=== PATIENT | female | born 1940 | race Caucasian/White ===

== ENCOUNTER 2019-12-08 08:54 | Outpatient (CLI) | payer MEDICARE, BC, SELFPAY ==
[2019-12-08 09:27] LABS: Hematocrit 44.4 % (37.0-47.0); Hemoglobin 15.3 g/dL (12.0-15.0); Mean Corpuscular HGB Conc 34.5 g/dl (32-36); Mean Corpuscular Hemoglobin 34.1 pg (26-34); Mean Corpuscular Volume 98.9 fl (80-100); Mean Platelet Volume 9.3 fl (7.4-10.4); Platelet Count Result 204 k/mm3 (150-375); Red Blood Count 4.49 M/mm3 (4.2-5.4); Red Cell Distribution Width 13.8 % (11.5-14.5); White Blood Count 5.2 K/mm3 (4.5-10.0)
[2019-12-08 09:36] LABS: Alanine Aminotransferase 53 U/L (4-35); Alkaline Phosphatase 121 U/L (38-126); Aspartate Amino Transferase 67 U/L (14-36); Bilirubin,Total 1.2 mg/dL (0.2-1.3); Blood Urea Nitrogen 13 mg/dL (7-17); Calcium 9.1 mg/dL (8.4-10.2); Carbon Dioxide 26 mmol/L (22-30); Chloride 104 mmol/L (98-107); Estimated Glomerular Filt Rate > 60; Glucose 100 mg/dL (65-105); Potassium 4.3 mmol/L (3.4-5.0); Sodium 135 mmol/L (137-145)
[2019-12-08 10:47] LABS: Folic Acid > 20.0 ng/mL (2.76->20)
== END 2019-12-08 08:55 | disposition home or self-care (01) ==
LOC: ANHLAB 08:57
PROVIDERS: PCP Internal Medicine; Visit Provider Internal Medicine
DX: R53.83 Other fatigue (principal)
CPT/HCPCS: 36415; 80053; 82607; 82746; 84443; 85027

== ENCOUNTER 2019-12-26 00:57 | Emergency (ER) | payer MEDICARE, BC, SELFPAY ==
[2019-12-26 00:49] VITALS: BP 143/79; PULSE 63; RESP 19; TEMP 36.4; O2SAT 97
[2019-12-26 01:12] LABS: Basophils Absolute Auto 0.1 K/mm3 (0.0-0.1); Basophils Percent Auto 1.5 % (0.2-1.2); Eosinophils Absolute Auto 0.3 K/mm3 (0-0.3); Eosinophils Percent Auto 6.1 % (0-4.4); Hematocrit 42.8 % (37.0-47.0); Hemoglobin 14.9 g/dL (12.0-15.0); Immature Granulocyte Absolute 0.01 K/mm3 (0.00-0.031); Immature Granulocyte Percent A 0.2 % (0-0.5); Lymphocytes Absolute Auto 1.65 K/mm3 (0.9-3.2); Lymphocytes Percent Auto 34.9 % (18.3-44.2); Mean Corpuscular HGB Conc 34.8 g/dl (32-36); Mean Corpuscular Hemoglobin 34.3 pg (26-34); Mean Corpuscular Volume 98.6 fl (80-100); Monocytes Absolute Auto 0.6 K/mm3 (0.1-0.6); Monocytes Percent Auto 12.1 % (2.6-8.5); Neutrophils Absolute Auto 2.1 K/mm3 (1.3-6.7); Neutrophils Percent Auto 45.2 % (45.5-73.1); Platelet Count Result 216 k/mm3 (150-375); Red Blood Count 4.34 M/mm3 (4.2-5.4); Red Cell Distribution Width 13.5 % (11.5-14.5); White Blood Count 4.7 K/mm3 (4.5-10.0)
[2019-12-26] MEDS: OXYMETAZOLINE HCL 0.05% NAS 15 ML BTL (*BKC) 1 SPRAY NASAL (01:18)
[2019-12-26 01:27] LABS: Alanine Aminotransferase 41 U/L (4-35); Albumin Level 3.8 g/dL (3.5-5.1); Alkaline Phosphatase 116 U/L (38-126); Anion Gap 8 mmol/L (8-16); Aspartate Amino Transferase 55 U/L (14-36); Bilirubin,Total 0.6 mg/dL (0.2-1.3); Blood Urea Nitrogen 15 mg/dL (7-17); Carbon Dioxide 22 mmol/L (22-30); Chloride 103 mmol/L (98-107); Estimated CRCL calculation 71 ml/min; Estimated Glomerular Filt Rate > 60; Glucose 131 mg/dL (65-105); Sodium 133 mmol/L (137-145)
[2019-12-26 01:29] LABS: INR 2.3; Prothrombin Time 24.9 Seconds (11.1-14.7)
--- NOTE | 2019-12-26 01:32 | ED.EPISTAXIS ---
HPI - Epistaxis General Chief complaint: Epistaxis Stated complaint: nose bleed Source: patient and EMS History of Present Illness HPI Narrative: Patient presents via EMS for nosebleed in the night. She had a nosebleed yesterday that resolved. Then in the night she woke up with blood on her hand. She said is bleeding from the left nostril. She is on Xarelto for her A. fib. She has had nosebleeds in the past. She also takes blood pressure medicine. She lives alone. She denies picking her nose. She has not been sick recently. complaint: epistaxis Location: left nostril Onset (ago): hour(s) Duration: now resolved Context: history of previous, other anticoagulant use, hypertension and other (History of A. fib) Treatment prior to arrival: nose pinching and nasal clamp Related Data Home Medications Medication Instructions Recorded Confirmed artificial tears(hypromellose) 0.3 1 drop EACH EYE BID PRN 06/18/19 % eye drops calcium phosphate-vitamin D3 250 tablet PO 06/18/19 mg calcium-500 unit chewable tablet melatonin 3 mg capsule PO 06/18/19 metoprolol tartrate 25 mg tablet 12.5 mg PO BID tablet 06/18/19 rivaroxaban 20 mg tablet 20 mg PO QPM 06/18/19 Allergies Allergy/AdvReac Type Severity Reaction Status Date / Time Penicillins Allergy Unknown Hives Verified 06/21/19 10:48 Review of Systems Review of Systems: Narrative: CONSTITUTIONAL: Denies fever, chills, or sweats. EYES: Denies visual changes, redness, or discharge. ENT: Denies rhinorrhea, congestion, sore throat, or otalgia. CARDIOVASCULAR: Denies chest pain, palpitations, or edema. RESPIRATORY: Denies cough or dyspnea. GASTROINTESTINAL: Denies abdominal pain, nausea, vomiting, or diarrhea. GENITOURINARY: Denies dysuria or hematuria. SKIN: Denies rash or itching. MUSCULOSKELETAL: Denies back pain, joint pain, or myalgia. NEUROLOGIC: Denies headache, numbness, or weakness. . All systems reviewed & are unremarkable except as noted in HPI and below PMFSH Past Medical History Medical History A-fib Social History Social History Smoking status: Never smoker Second hand tobacco smoke exposure: No Alcohol intake: never Gender identity (if verbalized by the patient): Female Exam Narrative: Exam Narrative: GENERAL: Well-appearing, well-nourished, and in no acute distress. Nose clamp on, blood splattered on her close and feet. HEAD: Normocephalic, atraumatic. EYES: PERRLA and EOMI. ENT: Nares clear, no rhinorrhea. Mucous membranes moist. Moist blood clot in the left nostril. No active bleeding. NECK: Supple. CHEST: Clear to auscultation. No respiratory distress. HEART: Regular rate and rhythm. No murmur heard. Normal peripheral pulses. ABDOMEN: Soft, nontender, nondistended, normal active bowel sounds. EXTREMITIES: Normal range of motion. No edema. SKIN: Warm, dry, no rash. NEURO: No focal deficits. Alert and oriented x3. PSYCH: Normal mood and affect. Course Reevaluation(s) Reevaluation #1: She bled through the Afrin and the addition of pressure. Put in a rapid Rhino 4.5 cm. Bleeding controlled. Date: 12/26/19 Time: 02:02 Reevaluation #2: Bleeding has stopped with nasal packing in place. She was instructed to leave the packing in until next week when she calls the ear nose and throat doctor and get the appointment. Date: 12/26/19 Time: 02:28 Vital Signs Vital signs: Vital Signs Temperature 97.6 F 12/26/19 00:49 Pulse Rate 63 12/26/19 00:49 Respiratory Rate 19 12/26/19 00:49 Blood Pressure 143/79 H 12/26/19 00:49 Pulse Oximetry 97 12/26/19 00:49 Temperature 97.6 F 12/26/19 00:49 Pulse Rate 63 12/26/19 00:49 Respiratory Rate 19 12/26/19 00:49 Blood Pressure 143/79 H 12/26/19 00:49 Pulse Oximetry 97 12/26/19 00:49 MDM - Epistaxis MDM Narrative Medical decision making narrative: 2 spr
[2019-12-26 02:35] VITALS: BP 153/90; PULSE 55; RESP 19; O2SAT 97
== END 2019-12-26 02:35 | disposition home or self-care (01) ==
PROVIDERS: Emergency Provider Emergency Medicine; PCP Internal Medicine
DX: R04.0 Epistaxis (principal); I48.91 Unspecified atrial fibrillation; Z79.01 Long term (current) use of anticoagulants
CPT/HCPCS: 30901; 36415; 80053; 85025; 85610; 99283

== ENCOUNTER 2020-05-06 09:39 | Emergency (ER) | payer MEDICARE, BC, SELFPAY ==
[2020-05-06 09:40] VITALS: BP 171/80; PULSE 80; RESP 16; TEMP 36.3; O2SAT 100
--- NOTE | 2020-05-06 11:20 | ED.GENADULT ---
HPI - General Adult General Chief complaint: Skin/Abscess/Foreign Body <Walker Meyers PA-C - Last Filed: 05/06/20 11:24> Stated complaint: possible shingles <Walker Meyers PA-C - Last Filed: 05/06/20 11:24> Time Seen by Provider: 05/06/20 10:13 <Walker Meyers PA-C - Last Filed: 05/06/20 11:24> Source: patient <Walker Meyers PA-C - Last Filed: 05/06/20 11:24> Mode of arrival: ambulatory <Walker Meyers PA-C - Last Filed: 05/06/20 11:24> Limitations: no limitations <Walker Meyers PA-C - Last Filed: 05/06/20 11:24> History of Present Illness HPI narrative: Patient is an 79-year-old female who presents to emergency department with posterior neck and left-sided neck rash and scalp rash began over the last day burning aching pain with blistering lesions denies URI symptoms fever chills nausea vomiting does not take anything for symptoms worsen with touch <Walker Meyers PA-C - Last Filed: 05/06/20 11:24> Related Data Home medications: Home Medications Medication Instructions Recorded Confirmed artificial tears(hypromellose) 0.3 1 drop EACH EYE BID PRN 06/18/19 02/02/20 % eye drops metoprolol tartrate 25 mg tablet 12.5 mg PO BID tablet 06/18/19 02/02/20 <Walker Meyers PA-C - Last Filed: 05/06/20 11:24> Allergies/adverse reactions: Allergies Allergy/AdvReac Type Severity Reaction Status Date / Time Penicillins Allergy Unknown Hives Verified 05/06/20 10:07 <Walker Meeyrs PA-C - Last Filed: 05/06/20 11:24> Review of Systems Review of Systems: All systems reviewed & are unremarkable except as noted in HPI and below <Walker Meyers PA-C - Last Filed: 05/06/20 11:24> PMFSH Past Medical History Medical History: Medical History (Updated 05/06/20 @ 11:23 by Walker Meyers PA-C) A-fib Vaginal prolapse <Walker Meyers PA-C - Last Filed: 05/06/20 11:24> Family History Family History: Family History Sibling Patient's brother is Mother Family history of lupus erythematosus <Walker Meyers PA-C - Last Filed: 05/06/20 11:24> Social History Social History: Social History Smoking status: Never smoker Second hand tobacco smoke exposure: No Alcohol intake: never Gender identity (if verbalized by the patient): Female <Walker Meyers PA-C - Last Filed: 05/06/20 11:24> Exam Narrative: Exam Narrative: GENERAL: Well-appearing, well-nourished, and in no acute distress. HEAD: Normocephalic, atraumatic. EYES: PERRLA and EOMI. ENT: Nares clear, no rhinorrhea or epistaxis. Mucous membranes moist. CHEST: Clear to auscultation. No respiratory distress. No wheezes rales or rhonchi HEART: Regular rate and rhythm. No murmur heard EXTREMITIES: Normal range of motion. No edema. SKIN: Warm, dry, patient with rash that appears to be herpetic in nature involving the left paraspinal posterior neck and scalp left-sided NEURO: No focal deficits. Alert and oriented x3. PSYCH: Normal mood and affect. <Walker Meyers PA-C - Last Filed: 05/06/20 11:24> Course Course Emergency Course: Patient in the room at this time aware of that she has shingles will be discharged home treated symptomatically advised to follow with primary care <Walker Meyers PA-C - Last Filed: 05/06/20 11:24> Vital Signs Vital signs: Vital Signs Temperature 97.4 F L 05/06/20 09:40 Pulse Rate 80 05/06/20 09:40 Respiratory Rate 16 05/06/20 09:40 Blood Pressure 171/80 H 05/06/20 09:40 Pulse Oximetry 100 05/06/20 09:40 Temperature 97.4 F L 05/06/20 09:40 Pulse Rate 66 05/06/20 11:45 Respiratory Rate 16 05/06/20 11:45 Blood Pressure 145/69 H 05/06/20 11:45 Pulse Oximetry 99 12/19/20 11:45 <Walker Meyers PA-C - Last Filed: 05/06/20 11:24> Vi
[2020-05-06 11:45] VITALS: BP 145/69; PULSE 66; RESP 16; O2SAT 99
== END 2020-05-06 11:45 | disposition home or self-care (01) ==
PROVIDERS: Emergency Provider General Practice; PCP Internal Medicine
DX: B02.9 Zoster without complications (principal); I48.91 Unspecified atrial fibrillation
CPT/HCPCS: 99283

== ENCOUNTER 2020-10-24 07:35 | Emergency (ER) | payer MEDICARE, BC, SELFPAY ==
[2020-10-24 07:44] VITALS: RESP 20; O2SAT 98
[2020-10-24 07:45] VITALS: RESP 16; O2SAT 98
[2020-10-24 07:46] VITALS: BP 158/122; PULSE 94; RESP 18; O2SAT 99
[2020-10-24 07:49] VITALS: BP 172/103; PULSE 100; RESP 14; TEMP 36.6; O2SAT 99
--- NOTE | 2020-10-24 08:03 | ED.EPISTAXIS ---
HPI - Epistaxis General Chief complaint: Epistaxis Stated complaint: nose bleed Time Seen by Provider: 10/24/20 07:38 History of Present Illness HPI Narrative: Patient is a 80-year-old female who presents ER with epistaxis from left nostril. Began last night at 8 PM. Intermittent through the night. No blood thinners. No trauma to the nose. Denies sinus congestion/sore throat/cough. Has had issues with nosebleeds in the past. Related Data Home Medications Medication Instructions Recorded Confirmed artificial tears(hypromellose) 0.3 1 drop EACH EYE BID PRN 06/18/19 08/07/20 % eye drops metoprolol tartrate 25 mg tablet 12.5 mg PO BID tablet 06/18/19 08/07/20 Allergies Allergy/AdvReac Type Severity Reaction Status Date / Time Penicillins Allergy Unknown Hives Verified 08/07/20 09:34 Review of Systems Constitutional: Constitutional: Denies chills and Denies fever(s) ENT: Reports epistaxis, Denies nasal congestion and Denies sore throat Respiratory: Respiratory: Denies cough and Denies dyspnea PMFSH Past Medical History Medical History (Updated 10/24/20 @ 08:16 by Errol Up MD) A-fib Lupus Vaginal prolapse Family History Family History Sibling Patient's brother is Mother Family history of lupus erythematosus Social History Social History Smoking status: Never smoker Second hand tobacco smoke exposure: No Alcohol intake: never Gender identity (if verbalized by the patient): Female Exam Narrative: Exam Narrative: GENERAL: Well-appearing, well-nourished, and in no acute distress. HEAD: Normocephalic, atraumatic. ENT: Nares clear, no rhinorrhea. Evidence of recent bleeding from the left nostril over the septum. Mucous membranes moist. NEURO: No focal deficits. Alert and oriented x3. PSYCH: Normal mood and affect. Course Course Emergency Course: Discussed treatment plan and patient verbalized understanding. Discharge home. Vital Signs Vital signs: Vital Signs Temperature 97.8 F 10/24/20 07:49 Pulse Rate 100 10/24/20 07:49 Respiratory Rate 14 10/24/20 07:49 Blood Pressure 172/103 H 10/24/20 07:49 Pulse Oximetry 99 10/24/20 07:49 Temperature 97.8 F 10/24/20 07:49 Pulse Rate 100 10/24/20 07:49 Respiratory Rate 14 10/24/20 07:49 Blood Pressure 172/103 H 10/24/20 07:49 Pulse Oximetry 99 10/24/20 07:49 Procedures Epistaxis Control left: Epistaxis Control Date: 10/24/20 Epistaxis Control Time: 08:02 Time Out Performed: No Direct Inspection: yes and anterior source identified Cautery Used: silver nitrate Patient Tolerated Procedure: well Discharge Plan Discharge Clinical Impression: Acute anterior epistaxis Patient Disposition: Home, Self-Care Condition: Stable Instructions: Nosebleed (ED) Additional Instructions: Return to the ER if you have severe uncontrolled bleeding that lasts longer than 20 minutes, you lose consciousness, or you are not able to breathe. After a severe episode of nosebleeding you may have a bowel movement that appears to have blood in it. This is due to the fact that you have swallowed a lot of blood. In order to prevent nosebleeds it is recommended that you use [place] nasal spray to increase moisture in your nose, you apply Vaseline as a barrier cream with a Q-tip, and that you use a humidifier/vaporizer in your bedroom at night. If you have oxymetazoline (Afrin) available, this can be used twice a day for no longer than 3 days. It can help control your bleeding. You may use claritin or zyrtec as nasal decongestants if your have a runny/stuffy nose. Prescriptions: No Action artificial tears(hypromellose) 0.3 % drops 1 drop EACH EYE BID PRN (Reason: Dry Eyes) RF: 0 metoprolol tartrate 25 mg tablet 12.5 mg PO BID RF: 0
[2020-10-24 08:08] VITALS: PULSE 88; RESP 18; O2SAT 98
[2020-10-24 08:15] VITALS: PULSE 80; RESP 17; O2SAT 98
== END 2020-10-24 08:36 | disposition home or self-care (01) ==
LOC: ANHED 08:12
PROVIDERS: Emergency Provider Emergency Medicine; PCP Internal Medicine
DX: R04.0 Epistaxis (principal)
CPT/HCPCS: 30901; 99282

== ENCOUNTER 2020-11-10 09:25 | Outpatient (CLI) | payer MEDICARE, BC, SELFPAY ==
[2020-11-10 09:52] LABS: Basophils Absolute Auto 0.1 K/mm3 (0.0-0.1); Basophils Percent Auto 0.9 % (0.2-1.2); Eosinophils Absolute Auto 0.3 K/mm3 (0-0.3); Eosinophils Percent Auto 4.7 % (0-4.4); Hematocrit 47.5 % (37.0-47.0); Hemoglobin 15.9 g/dL (12.0-15.0); Immature Granulocyte Absolute 0.02 K/mm3 (0.00-0.031); Immature Granulocyte Percent A 0.3 % (0-0.5); Lymphocytes Absolute Auto 1.85 K/mm3 (0.9-3.2); Lymphocytes Percent Auto 27.8 % (18.3-44.2); Mean Corpuscular HGB Conc 33.5 g/dl (32-36); Mean Corpuscular Hemoglobin 33.7 pg (26-34); Mean Corpuscular Volume 100.6 fl (80-100); Mean Platelet Volume 8.6 fl (7.4-10.4); Monocytes Absolute Auto 0.7 K/mm3 (0.1-0.6); Monocytes Percent Auto 9.9 % (2.6-8.5); Neutrophils Absolute Auto 3.8 K/mm3 (1.3-6.7); Neutrophils Percent Auto 56.4 % (45.5-73.1); Platelet Count Result 213 k/mm3 (150-375); Red Blood Count 4.72 M/mm3 (4.2-5.4); Red Cell Distribution Width 13.2 % (11.5-14.5); White Blood Count 6.7 K/mm3 (4.5-10.0)
[2020-11-10 10:04] LABS: Alanine Aminotransferase 17 U/L (4-35); Albumin Level 4.3 g/dL (3.5-5.1); Alkaline Phosphatase 111 U/L (38-126); Anion Gap 7 mmol/L (8-16); Aspartate Amino Transferase 30 U/L (14-36); Bilirubin,Total 0.8 mg/dL (0.2-1.3); Blood Urea Nitrogen 13 mg/dL (7-17); Calcium 9.3 mg/dL (8.4-10.2); Carbon Dioxide 26 mmol/L (22-30); Chloride 105 mmol/L (98-107); Cholesterol 154 mg/dL (0-200); Estimated Glomerular Filt Rate > 60; Glucose 100 mg/dL (65-105); HDL Direct 60 mg/dL; Potassium 4.6 mmol/L (3.4-5.0); Sodium 138 mmol/L (137-145); Triglycerides 80 mg/dL (<150)
[2020-11-10 10:18] LABS: LDL Cholesterol Direct 71 mg/dL
[2020-11-10 10:51] LABS: Iron 81 ug/dL (37-170)
[2020-11-10 11:01] LABS: Percent Iron Saturation 27 % (20-50)
[2020-11-10 12:18] LABS: Folic Acid > 20.0 ng/mL (2.76->20)
== END 2020-11-10 09:26 | disposition home or self-care (01) ==
PROVIDERS: PCP Internal Medicine; Visit Provider Internal Medicine
DX: R74.8 Abnormal levels of other serum enzymes (principal); R53.83 Other fatigue; D64.9 Anemia, unspecified
CPT/HCPCS: 36415; 80053; 80061; 82607; 82746; 83540; 83550; 84443; 85025

== ENCOUNTER 2021-08-22 08:00 | Outpatient (CLI) | payer MEDICARE, BC, SELFPAY ==
[2021-08-22 08:29] LABS: Basophils Absolute Auto 0.1 K/mm3 (0.0-0.1); Basophils Percent Auto 1.1 % (0.2-1.2); Eosinophils Absolute Auto 0.4 K/mm3 (0-0.3); Eosinophils Percent Auto 7.7 % (0-4.4); Hemoglobin 16.5 g/dL (12.0-15.0); Immature Granulocyte Absolute 0.01 K/mm3 (0.00-0.031); Immature Granulocyte Percent A 0.2 % (0-0.5); Lymphocytes Absolute Auto 1.97 K/mm3 (0.9-3.2); Lymphocytes Percent Auto 34.6 % (18.3-44.2); Mean Corpuscular HGB Conc 34.4 g/dl (32-36); Mean Corpuscular Hemoglobin 34.7 pg (26-34); Mean Corpuscular Volume 100.8 fl (80-100); Mean Platelet Volume 8.5 fl (7.4-10.4); Monocytes Absolute Auto 0.6 K/mm3 (0.1-0.6); Monocytes Percent Auto 10.4 % (2.6-8.5); Neutrophils Absolute Auto 2.6 K/mm3 (1.3-6.7); Platelet Count Result 215 k/mm3 (150-375); Red Blood Count 4.76 M/mm3 (4.2-5.4); Red Cell Distribution Width 12.6 % (11.5-14.5); White Blood Count 5.7 K/mm3 (4.5-10.0)
[2021-08-22 08:45] LABS: Alanine Aminotransferase 16 U/L (4-35); Albumin Level 4.4 g/dL (3.5-5.1); Alkaline Phosphatase 116 U/L (38-126); Anion Gap 7 mmol/L (8-16); Aspartate Amino Transferase 31 U/L (14-36); Blood Urea Nitrogen 13 mg/dL (7-17); Carbon Dioxide 28 mmol/L (22-30); Chloride 101 mmol/L (98-107); Estimated Glomerular Filt Rate > 60; Glucose 116 mg/dL (65-110); Lactate Dehydrogenase 411 U/L (313-618); Potassium 4.7 mmol/L (3.4-5.0); Sodium 136 mmol/L (137-145)
[2021-08-22 09:59] LABS: Folic Acid > 20.0 ng/mL (2.76->20)
== END 2021-08-22 08:01 | disposition home or self-care (01) ==
LOC: ANHLAB 08:03
PROVIDERS: PCP Internal Medicine; Visit Provider Internal Medicine
DX: R53.83 Other fatigue (principal); D75.1 Secondary polycythemia
CPT/HCPCS: 36415; 80053; 82607; 82746; 83615; 84443; 85025

== ENCOUNTER 2024-09-27 12:42 | Emergency (ER) | payer MEDICARE, SELFPAY ==
[2024-09-27 12:44] VITALS: BP 162/88; PULSE 88; RESP 16; TEMP 37.1; O2SAT 98
--- OUTSIDE RECORDS SUMMARY | 2024-09-27 12:44 | XMS_ITS | Referral Summary ---
Author Organization [facility] al Address [address] [place] [address] Care Team Providers Care Costume Draper Name Role Phone Gene Cash MD Unavailable [phone] Joey Canales MD Primary Care Provider Allergies Active Allergy Reactions Criticality Noted Date Comments Penicillins Hives Medium 08/18/2008 Medications multivit-min/ir on/folic/lutein (CENTRUM SILVER WOMEN ORAL) Take 1 tablet by mouth daily Active senna (SENOKOT) 8.6 mg tablet Take 1 tablet by mouth as needed for constipation Active atorvastatin (LIPITOR) 40 mg tablet Take 1 tablet (40 mg total) by mouth nightly 30 tablet 3 4 Active Additional Information Patient not taking.Reported on 06/25/2024 apixaban (ELIQUIS) 5 mg tablet Take 1 tablet (5 mg total) by mouth 2 (two) times a day 60 tablet 3 4 Active Additional Information Patient not taking.Reported on 06/25/2024 furosemide (LASIX) 40 mg tablet Take 1 tablet (40 mg total) by mouth daily Active metoprolol tartrate (LOPRESSOR) 25 mg immediate release tabletIndicatio ns:Atrial fibrillation, unspecified type (HCC) TAKE 1 TABLET BY MOUTH TWICE A DAY 180 tablet 1 5 Active Active Problems Problem Noted Date Diagnosed Date COVID-19 06/02/2024 Assessment & Plan (06/02/2024 12:44 PM PRINCIPAL EXAMINER): Patient reports that she is not taking apixaban. She is also not taking Lipitor. Therefore I did go ahead and prescribe the Paxlovid. Call for any worsening symptoms Medicare annual wellness visit, subsequent 04/21 Assessment & Plan (04/21/2024 9:45 AM PRINCIPAL EXAMINER): Reviewed vaccine status. Recommended pneumococcal vaccine today and pt was agreeable. Will need influenza vaccine as well. Pt is going to be moving into assisted living facility. Due for dexa scan. - does not wish to pursue at this time. Recommend tdap at future date. She does not have paperwork with her today for [facility]. History and physical performed today. May need paperwork depending on what jessica needs. 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 She does not recall the last hospitalization just this past March when she had another TIA. We reviewed all PMH, current problems and medications and I filled out paperwork needed for patient. Encounter for completion of form with patient Assessment & Plan (04/21/2024 4:27 PM PRINCIPAL EXAMINER): This was an additional evaluation done today. New problem, evaluation for Assisted Living. Patient had forgotten H&P forms for [facility] with her. We were able to call and get them faxed to us. Evaluation and H&P forms filled out based on today's office visit and faxed back to [facility]. TIA (transient ischemic attack) 04/06/2024 Assessment & Plan (04/07/2024 5:01 PM PRINCIPAL EXAMINER): Prior Hx of stroke and Sympx concerning for TIA ( facial droop, aphasia, weakness) but back to baseline upon arriving at the ED - CTA with R M2 occlusion - planned to transfer to neuro service but no bed available; pt now ready for discharge - tele, q 4 neuro checks, MRI without contrast, limited echo to look for intracardiac clot, A1c 5.8; lipid panel with LDL of 70 - pt with a history of afib and previously refused anticoagulation but is now agreeable. - per stroke attending, watchman procedure may be a good alternative to anticoagulation if patient does not tolerate AC or does not want to continue it in the future - MRI without acute stroke; TTE negative for clot and with negative bubble study. - start atorvastatin Left-sided muscle weakness 04/05/2024 Assessment & Plan (04/28/2024 5:35 PM PRINCIPAL EXAMINER): Residual weakness from CVA last June. Needs assistance in the home, more than she can provide herself and more than family can provide. Moving to assisted living. Moderate malnutrition 06/26/2023 Assessment & Plan (04/21/2024 9:41 AM PRINCIPAL EXAMINER): Wt Readings from Last 6 Encounters: 04/21/24 75 kg (165 lb 6.4 oz) 04/05/24 74.8 kg (164 lb 14.5 oz) 01/13/24 71.7 kg (158 lb) 12/16/23 71.7 kg (158 lb) 12/11/23 71.7 kg (158 lb) 12/09/23 71.9 kg (158 lb 8 oz) Weight is stable/ improved. Pt states her appetite is good. No signs of malnutrition at this time. Cerebrovascular accident (CVA), unspecified mech anism 06/20/2023 Assessment & Plan (04/28/2024 5:36 PM PRINCIPAL EXAMINER): Updated problem: Right basal ganglion stroke 06/2023 secondary to a-fib. residual Left sided weakness. 2nd TIA and hospital admission 03/2024. Worsening memory. Reviewed hospitalization and labs, medication updates. Uses walker. CHF (congestive heart failure) 11/27/2022 Assessment & Plan (04/21/2024 9:37 AM PRINCIPAL EXAMINER): Echo done 04/06/2024 with EF 63%. No current symptoms of CHF. Managed by cardiology - Dr. Uribe Assessment & Plan (12/01/2022 11:00 AM CDT): Presenting with new rash and bilateral upper and lower extremity swelling. BNP 3,000. No prior history of heart disease. No chest pain, dyspnea on exertion, PND, or orthopnea. - C Xray on 11/27 showing cardiomegaly and clear lungs without pneumothorax or pleural effusion. - CTPE on 11/28 showing cardiomegaly and mild pulmonary edema without evidence of PE. - TTE (11/28): EF 74%, small LVOT, small pericardial effusion, elevated PASP 36 mmHg - Overall, her picture is somewhat consistent with diastolic heart disease but the rapid onset of swelling without associated dyspnea is unusual. The swelling and weakness seemed to be improving with diuresis by 11/29. Improved to the point of being able to walk with assistance by 12/01. 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 She tries to drink decaf now. She does eat coffee candy. She doesn't drink regular coffee anymore. Mild episode of recurrent major depressive disor mary grace 07/29/2022 Assessment & Plan (04/21/2024 9:36 AM PRINCIPAL EXAMINER): PHQ-2 screening negative. Pt denies any depression and states she keeps busy and likes to read and watch television Gait disorder 01/25/2022 Assessment & Plan (04/21/2024 9:35 AM PRINCIPAL EXAMINER): Using walker. 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 Currently on metoprolol and apixaban bid. Assessment & Plan (04/07/2024 5:01 PM PRINCIPAL EXAMINER): CHADSVASC: 6 points On metoprolol 25 mg BID Starting apixaban 5 BID Assessment & Plan (11/28/2022 8:07 PM CDT): Continue metoprolol Not on AC due to recurrent bruising/bleeding issues Monitor on tele Assessment & Plan (11/27/2022 1:28 PM CDT): Continue metoprolol Not on AC due to recurrent bruising/bleeding issues Monitor on tele Resolved Problems Problem Noted Date Diagnosed Date Resolved Date Establishing care with frances flores for 12/16/2022 04/21/2024 Assessment & Plan (12/22/2022 11:39 AM CDT): A(n) initial visit to establish care and transition from recent hospitalization has been performed today. Kathy Monroe is up to date on screening tests. She is in need of None- no screening indicated at this time. She is not up to date on needed preventative vaccinations; She is in need of Covid-19 (booster). We discussed healthy lifestyle habits, educational material has been given. Medications reviewed, changes documented as per the medical record and discussed with patient along with risks vs benefits. I have also reviewed the hospital record, medications, and relevant testing from Kathy Monroe's recent admission. Complications and discharge plan have been noted, reviewed. Post-discharge testing has been ordered. Suture removed Awaiting labs Will look into the adjunct latin professor referral; if necessary we may issue another one Counseling discussed as well, it may be helpful if anxiety worsens Return in 2 months Rash 11/28/2022 04/21/2024 Assessment & Plan (12/02/2022 11:58 AM CDT): Rapid onset rash with associated swelling. Coalescing erythematous plaques and papules on bilateral upper and lower extremities. - Dermatology consulted on 11/29 with DDx of cutaneous hypersensitivity eruption and viral exanthem w low concern for connective tissue disease. Noticeable improvements by 12/01. - Biopsy collected on 11/29; as per derm, preliminary reading showed nonspecific findings that could be seen in drug eruptions, viral exanthems, and connective tissue dx. They recommended to continue TMC cream and workup for culprit medications or CTD as clinically indicated. - Triamcinolone cream 0.1% BID to rash on extremities started on 11/29 - Respiratory Viral Panel on 11/29 unremarkable Hyponatremia 11/27/2022 04/21/2024 Assessment & Plan (11/30/2022 6:29 PM CDT): She has chronic hyponatremia to 130. - Na 123 on admission on 11/27, improving to 127 on 11/28 after diuresis. - Urine osm 339 and Urine Na 86 on 11/28 - Slow diuresis, monitor BMP nightly Assessment & Plan (11/27/2022 1:27 PM CDT): Na 123<131 (08/08) Iso presumed CHF Monitor daily Na Anxiety 07/29/2022 04/21/2024 Overview (07/29/2022): Improving. Continue mirtazapine. Try to keep caffeine in moderation Lupus 11/16/2018 12/16/2023 Immunizations Immunization Administration Dates Next Due Influenza, Quadrivalent, Hig h Dose, Preservative Free, Intrr 06/26/2023(Deferred: Other - pt had a reaction in the past to vaccine which included difficulty breathing. notified my licensed loan officer assistant.),06/24/2023(Deferred: Other - Asked pt if she had ever had a bad reaction to a vaccine and was unable to fully comprehend her response, will defer until cognition is improved),03/18/2020 Influenza, Unspecified 02/17/2023(Deferr ed: Patient Refused),05/19/2022(Deferred: Patient Refused),05/19/2022(Deferred: Patient Refused),05/19/2021(Deferred: Patient Refused) Pfizer SARS-CoV-2 Monovalent Vaccination (12+ Yrs) PURPLE 08/18/2020,07/18/2020 ZOSTER Recombinant 01/20/2021,10/31/2020 Social History Tobacco Use Types Packs/Day Years Used Date Smoking Tobacco: Never Smokeless Tobacco: Never Tobacco Cessation:Counseling Given: Not Answered Alcohol Use Standard Drinks/Week Comments Not Currently 0 (1 standard drink = 0.6 oz pur e alcohol) AUDIT-C Answer Date Recorded Q1: How often do you have a drink containing alcohol? Never 01/13/2024 Q2: How many drinks containi ng alcohol do you have on a typical day when you are drinking? Patient does not drink Q3: How often do you have si x or more drinks on one occasion? Never 01/13/2024 PHQ-2 Answer Date Recorded PHQ-2 Total Score (If total score is 3 or more points, staff should administer the PHQ-9) 0 04/21/2024 Personal Safety Answer Date Recorded Have you ever been in or are you currently in a harmful physical or emotional relationship or is someone making you feel afraid or unsafe? Denies 04/05/2024 Comments No Sex and Gender Information Value Date Recorded Sex Assigned at Not on file Legal Sex Female 2:25 AM CDT Gender Identity Not on file Sexual Orientation Not on file Last Filed Vital Signs Vital Sign Reading Time Taken Comments Blood Pressure 124/70 06/25/2024 9:21 AM PRINCIPAL EXAMINER Pulse 91 06/25/2024 9:21 AM PRINCIPAL EXAMINER Temperature 36.3 C (97.4 F) 06/02/2024 11:47 AM PRINCIPAL EXAMINER Respiratory Rate 16 06/02/2024 11:47 AM PRINCIPAL EXAMINER Oxygen Saturation 97% 06/25/2024 9:21 AM PRINCIPAL EXAMINER Inhaled Oxygen Concentration - - Weight 75.4 kg (166 lb 3.2 oz) 06/25/2024 9:21 A M PRINCIPAL EXAMINER Height 167.6 cm (5' 6 ) 06/25/2024 9:21 AM PRINCIPAL EXAMINER Body Mass Index 26.83 06/25/2024 9:21 AM PRINCIPAL EXAMINER Plan of Treatment Not on file Insurance MEDICARE [employer] Advance Directives For more information, please contact: [phone] * Full Code (Latest Code Status on File) Date Activated Date Inactivated Comments 04/05/2024 11:59 PM 04/07/2024 7:08 PM * Full Code Date Activated Date Inactivated Comments 01/13/2024 11:09 AM 01/13/2024 6:04 PM * Full Code Date Activated Date Inactivated Comments 06/20/2023 10:54 PM 06/26/2023 8:56 PM * Full Code Date Activated Date Inactivated Comments 11/27/2022 4:44 PM 12/02/2022 6:56 PM Care Teams Costume Draper Relationship Specialty Start Date End Date Joey Canales MD [address] [facility] [address] [place] [address] PCP - General Family Medicine 04/06/24 Gene Cash MD [address] [facility] [address] [place] [address] Consulting Physician Cardiology 12/16/22
--- OUTSIDE RECORDS SUMMARY | 2024-09-27 12:44 | XMS_ITS | Clinical Summary ---
Author Organization [facility] al Address [address] [place] [address] Care Team Providers Care Undercar Specialist Name Role Phone Gene Cash MD Unavailable [phone] Joey Canales MD Primary Care Provider [phone] Allergies Active Allergy Reactions Criticality Noted Date [...] 06/02/2024 Assessment & Plan (06/02/2024 12:44 PM REROLLING MACHINE OPERATOR): Patient reports that she is not taking apixaban. She is also not taking Lipitor. Therefore I did go ahead and prescribe the Paxlovid. Call for any worsening symptoms Medicare annual wellness visit, subsequent 04/21 Assessment & Plan (04/21/2024 9:45 AM REROLLING MACHINE OPERATOR): Reviewed vaccine status. Recommended pneumococcal vaccine today [...] 08/2023 Assessment & Plan (04/26/2024 9:55 PM REROLLING MACHINE OPERATOR): This is a worsening problem since her [...] patient Assessment & Plan (04/21/2024 4:27 PM REROLLING MACHINE OPERATOR): This was an additional evaluation done today. New problem, evaluation for Assisted Living. Patient had forgotten H&P forms for [facility] with her. We were able to call and get them faxed to us. Evaluation and H&P forms filled out based on today's office visit and faxed back to [facility]. TIA (transient ischemic attack) 04/06/2024 Assessment & Plan (04/07/2024 5:01 PM REROLLING MACHINE OPERATOR): Prior Hx of stroke and Sympx concerning [...] 04/05/2024 Assessment & Plan (04/28/2024 5:35 PM REROLLING MACHINE OPERATOR): Residual weakness from CVA last June. Needs assistance in the home, more than she can provide herself and more than family can provide. Moving to assisted living. 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 residual Left sided weakness. 2nd TIA and hospital admission 03/2024. Worsening memory. Reviewed hospitalization and labs, medication updates. Uses walker. CHF (congestive heart failure) 11/27/2022 Assessment & Plan (04/21/2024 9:37 AM REROLLING MACHINE OPERATOR): Echo done 04/06/2024 with EF 63%. No [...] 07/29/2022 Assessment & Plan (04/21/2024 9:34 AM REROLLING MACHINE OPERATOR): Pt loves coffee. She tries to drink decaf now. She does eat coffee candy. She doesn't drink regular coffee anymore. Mild episode of recurrent major depressive disor mary grace 07/29/2022 Assessment & Plan (04/21/2024 9:36 AM REROLLING MACHINE OPERATOR): PHQ-2 screening negative. Pt denies any depression and states she keeps busy and likes to read and watch television Gait disorder 01/25/2022 Assessment & Plan (04/21/2024 9:35 AM REROLLING MACHINE OPERATOR): Using walker. 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 Currently on metoprolol and apixaban bid. Assessment & Plan (04/07/2024 5:01 PM REROLLING MACHINE OPERATOR): CHADSVASC: 6 points On metoprolol 25 mg [...] removed Awaiting labs Will look into the director of vocational training referral; if necessary we may issue another [...] vaccine which included difficulty breathing. notified my physician assistant certified.),06/24/2023(Deferred: Other - Asked pt if she had ever had a bad reaction to a vaccine and was unable to fully comprehend her response, will defer until cognition is improved),03/18/2020 Influenza, Unspecified 02/17/2023(Deferr ed: Patient Refused),05/19/2022(Deferred: Patient Refused),05/19/2022(Deferred: Patient Refused),05/19/2021(Deferred: Patient Refused) Pfizer SARS-CoV-2 Monovalent Vaccination (12+ Yrs) PURPLE 08/18/2020,07/18/2020 ZOSTER Recombinant 01/20/2021,10/31/2020 Surgical History Surgery Date Site/Laterality Comments HIP SURGERY Bilateral CATARACT EXTRACTION, BILATERAL Medical History Medical History Date Comments Arthritis Lupus Atrial fibrillation (HCC) Anxiety Hyponatremia Stroke (HCC) Hypertension Hyperlipidemia Family History Medical History Relation Name Comments Arthritis Father Family history of arthritis - (Added by TW Conv) Heart disease Father Family history of cardiac disorder - (Added by TW Conv) Arthritis Mother Family history of arthritis - (Added by TW Conv) Lupus Mother fulminating Relation Name Status Comments Brother Father Mother Sister Social History Tobacco Use Types Packs/Day Years [...] on file Sexual Orientation Not on file Obstetrics History Last Filed Vital Signs Vital Sign Reading Time Taken Comments Blood Pressure 124/70 06/25/2024 9:21 AM REROLLING MACHINE OPERATOR Pulse 91 06/25/2024 9:21 AM REROLLING MACHINE OPERATOR Temperature 36.3 C (97.4 F) 06/02/2024 11:47 AM REROLLING MACHINE OPERATOR Respiratory Rate 16 06/02/2024 11:47 AM REROLLING MACHINE OPERATOR Oxygen Saturation 97% 06/25/2024 9:21 AM REROLLING MACHINE OPERATOR Inhaled Oxygen Concentration - - Weight 75.4 kg (166 lb 3.2 oz) 06/25/2024 9:21 A M REROLLING MACHINE OPERATOR Height 167.6 cm (5' 6 ) 06/25/2024 9:21 AM REROLLING MACHINE OPERATOR Body Mass Index 26.83 06/25/2024 9:21 AM REROLLING MACHINE OPERATOR Plan of Treatment Health Maintenance Due Date Last Done Comments Osteoporosis Screening-Bone Density Scan 1940 DTaP/Tdap/Td Vaccine (1 - Tdap) 10/23/1950 Hepatitis B Screening 10/23/1957 Pneumococcal vaccine 65+ (1 of 1 - PCV) 10/23/1989 Covid-19 Vaccine (4 - 2023-2 5 season) 2024 02/23/2021, 08/18/2020, 07/18/2020 Influenza Vaccine (Season Ended) 2025 03/18/20 20 Depression Screening 04/21/2025 04/21/2024, 04/05/2024, 06/20/2023, Additional history exists Fall Risk Assessment 04/21/2025 04/21/2024, 04/07/2024, 02/17/2023, Additional history exists Well Visit 65+ 04/21/2025 04/21/2024, 07/29/2022 Zoster Vaccine Completed 01/20/2021, 10/31/2020 Insurance MEDICARE [facility] MEDICARE Advance Directives For more information, please contact: [phone] * Full Code (Latest Code Status on File) Date Activated Date Inactivated Comments 04/05/2024 11:59 PM 04/07/2024 7:08 PM * Full Code Date Activated Date Inactivated Comments 01/13/2024 11:09 AM 01/13/2024 6:04 PM * Full Code Date Activated Date Inactivated Comments 06/20/2023 10:54 PM 06/26/2023 8:56 PM * Full Code Date Activated Date Inactivated Comments 11/27/2022 4:44 PM 12/02/2022 6:56 PM Care Teams Undercar Specialist Relationship Specialty Start Date End Date Joey Canales MD [address] [facility] [address] [place] [address] PCP - General Family Medicine 04/06/24 Gene Cash MD [address] [place] [address] Consulting Physician Cardiology 12/16/22
[2024-09-27 13:55] VITALS: BP 157/89; PULSE 80; RESP 18; O2SAT 98
[2024-09-27 13:59] VITALS: RESP 16
--- OUTSIDE RECORDS SUMMARY | 2024-09-27 14:35 | XMS_ITS | Clinical Summary ---
Author Organization [facility] al Address [address] [place] [address] Care Team Providers Care Switch Operators Supervisor Name Role Phone Gene Cash MD Unavailable [phone] oJey Canales MD Primary Care Provider Allergies Active [...] 06/02/2024 Assessment & Plan (06/02/2024 12:44 PM INTERFACE DESIGNER): Patient reports that she is not taking apixaban. She is also not taking Lipitor. Therefore I did go ahead and prescribe the Paxlovid. Call for any worsening symptoms Medicare annual wellness visit, subsequent 04/21 Assessment & Plan (04/21/2024 9:45 AM INTERFACE DESIGNER): Reviewed vaccine status. Recommended pneumococcal vaccine today [...] 08/2023 Assessment & Plan (04/26/2024 9:55 PM INTERFACE DESIGNER): This is a worsening problem since her [...] patient Assessment & Plan (04/21/2024 4:27 PM INTERFACE DESIGNER): This was an additional evaluation done today. New problem, evaluation for Assisted Living. Patient had forgotten H&P forms for [facility] with her. We were able to call and get them faxed to us. Evaluation and H&P forms filled out based on today's office visit and faxed back to [facility]. TIA (transient ischemic attack) 04/06/2024 Assessment & Plan (04/07/2024 5:01 PM INTERFACE DESIGNER): Prior Hx of stroke and Sympx concerning [...] 04/05/2024 Assessment & Plan (04/28/2024 5:35 PM INTERFACE DESIGNER): Residual weakness from CVA last June. Needs assistance in the home, more than she can provide herself and more than family can provide. Moving to assisted living. Moderate malnutrition 06/26/2023 Assessment & Plan (04/21/2024 9:41 AM INTERFACE DESIGNER): Wt Readings from Last 6 Encounters: 04/21/24 [...] 06/20/2023 Assessment & Plan (04/28/2024 5:36 PM INTERFACE DESIGNER): Updated problem: Right basal ganglion stroke 06/2023 secondary to a-fib. residual Left sided weakness. 2nd TIA and hospital admission 03/2024. Worsening memory. Reviewed hospitalization and labs, medication updates. Uses walker. CHF (congestive heart failure) 11/27/2022 Assessment & Plan (04/21/2024 9:37 AM INTERFACE DESIGNER): Echo done 04/06/2024 with EF 63%. No [...] 07/29/2022 Assessment & Plan (04/21/2024 9:34 AM INTERFACE DESIGNER): Pt loves coffee. She tries to drink decaf now. She does eat coffee candy. She doesn't drink regular coffee anymore. Mild episode of recurrent major depressive disor mary grace 07/29/2022 Assessment & Plan (04/21/2024 9:36 AM INTERFACE DESIGNER): PHQ-2 screening negative. Pt denies any depression and states she keeps busy and likes to read and watch television Gait disorder 01/25/2022 Assessment & Plan (04/21/2024 9:35 AM INTERFACE DESIGNER): Using walker. 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 Currently on metoprolol and apixaban bid. Assessment & Plan (04/07/2024 5:01 PM INTERFACE DESIGNER): CHADSVASC: 6 points On metoprolol 25 mg [...] removed Awaiting labs Will look into the silk soaker referral; if necessary we may issue another [...] vaccine which included difficulty breathing. notified my community assistant.),06/24/2023(Deferred: Other - Asked pt if she [...] Comments Blood Pressure 124/70 06/25/2024 9:21 AM INTERFACE DESIGNER Pulse 91 06/25/2024 9:21 AM INTERFACE DESIGNER Temperature 36.3 C (97.4 F) 06/02/2024 11:47 AM INTERFACE DESIGNER Respiratory Rate 16 06/02/2024 11:47 AM INTERFACE DESIGNER Oxygen Saturation 97% 06/25/2024 9:21 AM INTERFACE DESIGNER Inhaled Oxygen Concentration - - Weight 75.4 kg (166 lb 3.2 oz) 06/25/2024 9:21 A M INTERFACE DESIGNER Height 167.6 cm (5' 6 ) 06/25/2024 9:21 AM INTERFACE DESIGNER Body Mass Index 26.83 06/25/2024 9:21 AM INTERFACE DESIGNER Plan of Treatment Health Maintenance Due Date [...] Zoster Vaccine Completed 01/20/2021, 10/31/2020 Insurance MEDICARE [facility] MEDICARE Advance Directives For more information, please contact: [phone] * Full Code (Latest Code Status on File) Date Activated Date Inactivated Comments 04/05/2024 11:59 PM 04/07/2024 7:08 PM * Full Code Date Activated Date Inactivated Comments 01/13/2024 11:09 AM 01/13/2024 6:04 PM * Full Code Date Activated Date Inactivated Comments 06/20/2023 10:54 PM 06/26/2023 8:56 PM * Full Code Date Activated Date Inactivated Comments 11/27/2022 4:44 PM 12/02/2022 6:56 PM Care Teams Switch Operators Supervisor Relationship Specialty Start Date End Date Joey Canales MD [address] [facility] [address] [place] [address] PCP - General Family Medicine 04/06/24 Gene Cash MD [address] [place] [address] Consulting Physician Cardiology 12/16/22
--- OUTSIDE RECORDS SUMMARY | 2024-09-27 14:35 | XMS_ITS | Referral Summary ---
Author Organization [facility] al Address [address] [place] [address] Care Team Providers Care Dial Marker Name Role Phone Gene Cash MD Unavailable Joey Canales MD Primary Care Provider [phone] Allergies Active Allergy Reactions Criticality Noted Date [...] 06/02/2024 Assessment & Plan (06/02/2024 12:44 PM SEARCH AND RESCUE OFFICER): Patient reports that she is not taking apixaban. She is also not taking Lipitor. Therefore I did go ahead and prescribe the Paxlovid. Call for any worsening symptoms Medicare annual wellness visit, subsequent 04/21 Assessment & Plan (04/21/2024 9:45 AM SEARCH AND RESCUE OFFICER): Reviewed vaccine status. Recommended pneumococcal vaccine today [...] 08/2023 Assessment & Plan (04/26/2024 9:55 PM SEARCH AND RESCUE OFFICER): This is a worsening problem since her [...] patient Assessment & Plan (04/21/2024 4:27 PM SEARCH AND RESCUE OFFICER): This was an additional evaluation done today. New problem, evaluation for Assisted Living. Patient had forgotten H&P forms for [facility] with her. We were able to call and get them faxed to us. Evaluation and H&P forms filled out based on today's office visit and faxed back to [facility]. TIA (transient ischemic attack) 04/06/2024 Assessment & Plan (04/07/2024 5:01 PM SEARCH AND RESCUE OFFICER): Prior Hx of stroke and Sympx concerning [...] 04/05/2024 Assessment & Plan (04/28/2024 5:35 PM SEARCH AND RESCUE OFFICER): Residual weakness from CVA last June. Needs assistance in the home, more than she can provide herself and more than family can provide. Moving to assisted living. Moderate malnutrition 06/26/2023 Assessment & Plan (04/21/2024 9:41 AM SEARCH AND RESCUE OFFICER): Wt Readings from Last 6 Encounters: 04/21/24 [...] 06/20/2023 Assessment & Plan (04/28/2024 5:36 PM SEARCH AND RESCUE OFFICER): Updated problem: Right basal ganglion stroke 06/2023 secondary to a-fib. residual Left sided weakness. 2nd TIA and hospital admission 03/2024. Worsening memory. Reviewed hospitalization and labs, medication updates. Uses walker. CHF (congestive heart failure) 11/27/2022 Assessment & Plan (04/21/2024 9:37 AM SEARCH AND RESCUE OFFICER): Echo done 04/06/2024 with EF 63%. No [...] 07/29/2022 Assessment & Plan (04/21/2024 9:34 AM SEARCH AND RESCUE OFFICER): Pt loves coffee. She tries to drink decaf now. She does eat coffee candy. She doesn't drink regular coffee anymore. Mild episode of recurrent major depressive disor mary grace 07/29/2022 Assessment & Plan (04/21/2024 9:36 AM SEARCH AND RESCUE OFFICER): PHQ-2 screening negative. Pt denies any depression and states she keeps busy and likes to read and watch television Gait disorder 01/25/2022 Assessment & Plan (04/21/2024 9:35 AM SEARCH AND RESCUE OFFICER): Using walker. 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 Currently on metoprolol and apixaban bid. Assessment & Plan (04/07/2024 5:01 PM SEARCH AND RESCUE OFFICER): CHADSVASC: 6 points On metoprolol 25 mg [...] removed Awaiting labs Will look into the strainer tender referral; if necessary we may issue another [...] vaccine which included difficulty breathing. notified my compliance assistant.),06/24/2023(Deferred: Other - Asked pt if she [...] Comments Blood Pressure 124/70 06/25/2024 9:21 AM SEARCH AND RESCUE OFFICER Pulse 91 06/25/2024 9:21 AM SEARCH AND RESCUE OFFICER Temperature 36.3 C (97.4 F) 06/02/2024 11:47 AM SEARCH AND RESCUE OFFICER Respiratory Rate 16 06/02/2024 11:47 AM SEARCH AND RESCUE OFFICER Oxygen Saturation 97% 06/25/2024 9:21 AM SEARCH AND RESCUE OFFICER Inhaled Oxygen Concentration - - Weight 75.4 kg (166 lb 3.2 oz) 06/25/2024 9:21 A M SEARCH AND RESCUE OFFICER Height 167.6 cm (5' 6 ) 06/25/2024 9:21 AM SEARCH AND RESCUE OFFICER Body Mass Index 26.83 06/25/2024 9:21 AM SEARCH AND RESCUE OFFICER Plan of Treatment Not on file Insurance MEDICARE [facility] MEDICARE Advance Directives For more information, please contact: [phone] * Full Code (Latest Code Status on File) Date Activated Date Inactivated Comments 04/05/2024 11:59 PM 04/07/2024 7:08 PM * Full Code Date Activated Date Inactivated Comments 01/13/2024 11:09 AM 01/13/2024 6:04 PM * Full Code Date Activated Date Inactivated Comments 06/20/2023 10:54 PM 06/26/2023 8:56 PM * Full Code Date Activated Date Inactivated Comments 11/27/2022 4:44 PM 12/02/2022 6:56 PM Care Teams Dial Marker Relationship Specialty Start Date End Date Joey Canales MD [address] [facility] [address] [place] [address] PCP - General Family Medicine 04/06/24 Gene Cash MD [address] [facility] [address] [place] [address] Consulting Physician Cardiology 12/16/22
--- NOTE | 2024-09-27 14:42 | ED.GENADULT ---
HPI - General Adult General Chief complaint: Unspecified Stated complaint: rash, subjective fever Time Seen by Provider: 09/27/24 14:17 History of Present Illness HPI narrative: [age] old female presents emergency department complaining of not feeling well. Patient states she that she is running a fever at home but turns out it was only 98?. At time of evaluation patient states she feels improved and is declining any workup at this time. Related Data Home Medications ?Medication ?Instructions ?Recorded ?Confirmed ?Last Taken ?Type Centrum Silver Women 1 tablet PO DAILY 06/26/23 06/26/23 Unknown History atorvastatin 40 mg tablet 40 mg PO HS 06/26/23 06/26/23 06/25/23 19:41 History ofloxacin 0.3 % eye drops 5 drp otic (ear) BID 06/26/23 06/26/23 06/26/23 11:50 History sennosides 8.6 mg capsule (senna) 8.6 mg PO DAILY PRN Constipation 06/26/23 06/26/23 06/26/23 08:48 History Allergies Allergy/AdvReac Type Severity Reaction Status Date / Time Penicillins Allergy Unknown Hives Verified 08/28/21 11:02 Review of Systems Review of Systems: All systems reviewed & are unremarkable except as noted in HPI and below PMFSH Past Medical History Medical History A-fib Lupus Vaginal prolapse Family History Family History Sibling Patient's brother is Asthma Mother Family history of lupus erythematosus Other Alcoholism Depression Heart disease Social History Social History Smoking status: Never smoker Second hand tobacco smoke exposure: No Alcohol intake: former Substance use: never Substance use type: does not use Gender identity (if verbalized by the patient): Female Spiritual care concerns: No Exam Narrative: APPEARANCE: Well appearing, no pain, no distress, well-nourished. HEAD: normocephalic, atraumatic. EYES: PERRLA/EOMI, conjunctivae clear. NOSE: Normal no drainage EARS:TMS clear with good light reflex. THROAT: Pharynx clear, no exudate. NECK: Supple. No adenopathy, no masses. RESPIRATORY: Airway patent, respirations nonlabored. Clear to auscultation bilaterally, no rales, rhonchi, wheezing. CARDIOVASCULAR: Regular rate and rhythm without murmurs rubs or gallops. ABDOMINAL: Soft, nontender, nondistended, normal bowel sounds MUSCULOSKELETAL: Moves all extremities. Strength/ROM intact, No edema, No calf tenderness. NEURO: Alert. Cranial nerves II through XII intact. Good gait. Good coordination SKIN: Warm, dry. Normal Color Course Vital Signs Vital signs: Vital Signs Temperature 98.7 F 09/27/24 12:44 Pulse Rate 88 09/27/24 12:44 Respiratory Rate 16 09/27/24 12:44 Blood Pressure 162/88 H 09/27/24 12:44 Pulse Oximetry 98 09/27/24 12:44 Oxygen Delivery Room Air 09/27/24 12:44 Temperature 98 F 09/27/24 14:54 Pulse Rate 71 09/27/24 14:54 Respiratory Rate 16 09/27/24 14:54 Blood Pressure 141/87 H 09/27/24 14:54 Pulse Oximetry 97 09/27/24 14:54 Oxygen Delivery Room Air 09/27/24 12:44 Medical Decision Making MDM Narrative Medical decision making narrative: 83-year-old female present to the emergency department for evaluation for not feeling well. At time of initial evaluation patient states she does feel improved and patient has declined any workup at this time. Patient will be discharged to home with instructions have close follow-up with primary care physician. Differential Diagnosis Differential Diagnosis: UTI, viral syndrome, pneumonia, dehydration Vital Signs Vital Signs: Vital Signs Temperature 98.7 F 09/27/24 12:44 Pulse Rate 88 09/27/24 12:44 Respiratory Rate 16 09/27/24 12:44 Blood Pressure 162/88 H 09/27/24 12:44 Pulse Oximetry 98 09/27/24 12:44 Oxygen Delivery Room Air 09/27/24 12:44 Temperature 98 F 09/27/24 14:54 Pulse Rate 71 09/27/24 14:54 Respiratory Rate 16 09/27/24 14:54 Blood Pressure 141/87 H 09/27/24 14:54 Pulse Oximetry 97 09/27/24 14:54 Oxygen Delivery Room Air 09/27/24 12:44 Discharge Plan Discharge Clinical Impression: Fever, low grade Patient Disposition: Home Condition: Stable Instructions: Antibiotic Form, Viral Syndrome (ED) Additional Instructions: Have close follow-up with your primary care physician. Patient Language: Lithuanian Prescriptions: No Action atorvastatin 40 mg Tablet 40 mg PO HS Centrum Silver Women 1 tablet PO DAILY ofloxacin 0.3 % Drops 5 drp otic (ear) BID Rx Instructions: apply 5 drops to right ear two times daily for six doses senna 8.6 mg Capsule 8.6 mg PO DAILY PRN (Reason: Constipation) polyethylene glycol 3350 [Miralax] 17 gram Powder In Packet 17 g PO QAM Qty: 30 0RF metoprolol succinate [Toprol XL] 25 mg Tablet Extended Release 24 Hr 6.25 mg PO HS 30 Days Qty: 8 0RF Follow-up/Referrals: Ally,Joey Hatch MD [Primary Care Provider] -
[2024-09-27 14:54] VITALS: BP 141/87; PULSE 71; RESP 16; TEMP 36.6; O2SAT 97
--- NOTE | 2024-09-27 14:54 | PC.NURSE ---
Pt. offered a WC but states she prefers to ambulate with her walker. Pt. d/c to home with son.
== END 2024-09-27 14:57 | disposition home or self-care (01) ==
PROVIDERS: Emergency Provider Emergency Medicine; PCP Family Medicine
DX: R50.9 Fever, unspecified (principal); I48.91 Unspecified atrial fibrillation; M32.9 Systemic lupus erythematosus, unspecified; Z79.899 Other long term (current) drug therapy
CPT/HCPCS: 99283